=== PATIENT | female | born 2000 | race African-American/Black ===

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

== ENCOUNTER 2019-02-06 12:08 | Emergency (ER) | payer MEDICAID ==
[~2019-02-06] VITALS: Ht 162.6 cm; Wt 61.2 kg
[2019-02-06 12:25] VITALS: BP 125/72
--- NOTE | 2019-02-06 13:07 | PHYS DOC ---
Past Medical History Past Medical History: No Pertinent History, Other Additional Past Medical Histor: ADHD (TAHMINALYUBOV Polanco COMMERCIAL COLLECTOR) Past Surgical History: No Surgical History (TAHMINALYUBOV Polanco COMMERCIAL COLLECTOR) Alcohol Use: None Drug Use: None (CAMMY,LYUBOV COMMERCIAL COLLECTOR) Adult General Chief Complaint Chief Complaint: COUGH HPI HPI Patient is a 18 year old female who presents to the ED today complaining of a cough for 6 days. Patient states the cough is productive. Denies any fever. (LYUBOV CHAWLA COMMERCIAL COLLECTOR) Review of Systems Review of Systems Constitutional: Denies fever or chills [] Eyes: Denies change in visual acuity, redness, or eye pain [] HENT: Denies nasal congestion or sore throat [] Respiratory: Reports cough, denies shortness of breath [] Cardiovascular: No additional information not addressed in HPI [] GI: Denies abdominal pain, nausea, vomiting, bloody stools or diarrhea [] : Denies dysuria or hematuria [] Musculoskeletal: Denies back pain or joint pain [] Integument: Denies rash or skin lesions [] Neurologic: Denies headache, focal weakness or sensory changes [] All other systems were reviewed and found to be within normal limits, except as documented in this note. (LYUBOV CHAWLA COMMERCIAL COLLECTOR) Allergies Allergies Allergies Coded Allergies Type Severity Reaction Last Updated Verified No Known Drug Allergies 05/07/17 No (ELLEN SANTORO DO) Physical Exam Physical Exam Constitutional: Well developed, well nourished, no acute distress, non-toxic appearance. [] HENT: Normocephalic, atraumatic, bilateral external ears normal, oropharynx moist, no oral exudates, nose normal. [] Eyes: PERRLA, EOMI, conjunctiva normal, no discharge. [] Neck: Normal range of motion, no tenderness, supple, no stridor. [] Cardiovascular:Heart rate regular rhythm, no murmur [] Lungs & Thorax: Bilateral breath sounds clear to auscultation [] Abdomen: Bowel sounds normal, soft, no tenderness, no masses, no pulsatile masses. [] Skin: Warm, dry, no erythema, no rash. [] Back: No tenderness, no CVA tenderness. [] Extremities: No tenderness, no cyanosis, no clubbing, ROM intact, no edema. [] Neurologic: Alert and oriented X 3, normal motor function, normal sensory function, no focal deficits noted. [] Psychologic: Affect normal, judgement normal, mood normal. [] (LYUBOV CHAWLA APRN) Current Patient Data Vital Signs Vital Signs Date Time Temp Pulse Resp B/P (MAP) Pulse Ox O2 Delivery O2 Flow Rate FiO2 02/06/19 12:25 98.1 90 18 125/72 (89) 99 Room Air 98.1 (ELLEN SANTORO DO) Lab Values Laboratory Tests Test 02/06/19 12:48 02/06/19 12:58 Influenza Type A Antigen Negative (NEGATIVE) Influenza Type B Antigen Negative (NEGATIVE) POC Urine HCG, Qualitative Hcg negative (Negative) (ELLEN SANTORO DO) Lab Values Laboratory Tests Test 02/06/19 12:48 02/06/19 12:58 Influenza Type A Antigen Negative (NEGATIVE) Influenza Type B Antigen Negative (NEGATIVE) POC Urine HCG, Qualitative Hcg negative (Negative) (LYUBOV CHAWLA APRN) EKG EKG [] (LYUBOV CHAWLA APRN) Radiology/Procedures Radiology/Procedures []PROCEDURE: CHEST PA & LATERAL Chest, PA and Lateral: Technique: PA and lateral views of the chest were obtained. History: Cough, congestion, shortness of breath. Comparison: None. Findings: The heart and pulmonary vasculature appear within normal limits. The lungs are clear. The pleural margins are clear. Impression: No acute chest process is seen. Electronically signed by: Michael Mckeon MD (02/06/2019 1:18 PM) [facility] DICTATED and SIGNED BY: MICHAEL MCKEON MD DATE: 02/06/19 1318 (LYUBOV CHAWLA APRN) Course & Med Decision Making Course & Med Decision Making Pertinent Labs and Imaging studies reviewed. (See chart for details) This is a 18-year-old female patient presenting to the ED today with a cough that began 6 days ago. Chest xray interpreted by radiology is negative Negative influenza A or B D/c to home. Supportive care measures recommended. Follow-up with PCP in 1-2 weeks. (LYUBOV CHAWLA APRN) Dragon Disclaimer Dragon Disclaimer This electronic medical record was generated, in whole or in part, using a voice recognition dictation system. (LYUBOV CHAWLA APRN) Departure Departure Impression: Primary Impression: Cough Disposition: HOME, SELF-CARE Condition: STABLE Referrals: NO PCP (PCP) follow up with your doctor in 1-2 weeks Patient Instructions: Cough, Adult, [id number] Additional Instructions: You were evaluated in the emergency room for symptoms consistent with a viral illness. You can take [id number]-[id number] medications as needed for your symptoms. Your chest x-ray is negative, your influenza test is negative. Please follow-up with your own doctor in 1-2 weeks. Attending Signature Attending Signature I have reviewed the PA/CRANK HAND's note and plan of care. I was available for consultation as needed during the patient's visit in the emergency department. I agree with the clinical impression, plan, and disposition. (ELLEN SANTORO DO) LYUBOV CHAWLA APRN Feb 06, 2019 13:07 ELLEN SANTORO DO Feb 06, 2019 17:46
--- NOTE | 2019-02-06 13:21 | RAD ---
Chest, PA and Lateral: Technique: PA and lateral views of the chest were obtained. History: Cough, congestion, shortness of breath. Comparison: None. Findings: The heart and pulmonary vasculature appear within normal limits. The lungs are clear. The pleural margins are clear. Impression: No acute chest process is seen. Electronically signed by: Michael Mckeon MD (02/06/2019 1:18 PM) [facility]
[2019-02-06 14:02] LABS: INFLUENZA A PATIENT NEGATIVE (NEGATIVE); INFLUENZA B PATIENT NEGATIVE (NEGATIVE)
== END 2019-02-06 14:15 | disposition home or self-care (01) ==
LOC: ER 12:08
DX: R05 Cough (principal)
CPT/HCPCS: 71046; 81025; 87804; 99285-25

== ENCOUNTER 2019-02-18 21:55 | Emergency (ER) | payer SELFPAY ==
[2019-02-18 22:08] VITALS: BP 136/87
--- NOTE | 2019-02-18 23:04 | PHYS DOC ---
Past Medical History Past Medical History: No Pertinent History, Other Additional Past Medical Histor: ADHD (LYUBOV CHAWLA APRN) Past Surgical History: No Surgical History (LYUBOV CHAWLA APRN) Alcohol Use: None Drug Use: None (LYUBOV CHAWLA APRN) Attending Signature I have participated in the care of this patient and I have reviewed and agree with all pertinent clinical information above including history, exam, and recommendations. (ALBERTA LITTLE MD) Adult General Chief Complaint Chief Complaint: FLU SYMPTOM HPI HPI Patient is a 18 year old female presenting to the ED today with cough nasal congestion and body aches and chills for 4 days. (LYUBOV CHAWLA APRN) Review of Systems Review of Systems Constitutional: Reports body aches and chills, denies fever Eyes: Denies change in visual acuity, redness, or eye pain [] HENT: Reports nasal congestion, denies sore throat [] Respiratory: Reports cough, denies shortness of breath [] Cardiovascular: No additional information not addressed in HPI [] GI: Denies abdominal pain, nausea, vomiting, bloody stools or diarrhea [] : Denies dysuria or hematuria [] Musculoskeletal: Denies back pain or joint pain [] Integument: Denies rash or skin lesions [] Neurologic: Denies headache, focal weakness or sensory changes [] All other systems were reviewed and found to be within normal limits, except as documented in this note. (LYUBOV CHAWLA APRN) Allergies Allergies Allergies Coded Allergies Type Severity Reaction Last Updated Verified No Known Drug Allergies 05/07/17 No (ALBERTA LITTLE MD) Physical Exam Physical Exam Constitutional: Well developed, well nourished, no acute distress, non-toxic appearance. [] HENT: Normocephalic, atraumatic, bilateral external ears normal, oropharynx moist, no oral exudates, sounds congested nasally Eyes: PERRLA, EOMI, conjunctiva normal, no discharge. [] Neck: Normal range of motion, no tenderness, supple, no stridor. [] Cardiovascular:Heart rate regular rhythm, no murmur [] Lungs & Thorax: Bilateral breath sounds clear to auscultation [] Abdomen: Bowel sounds normal, soft, no tenderness, no masses, no pulsatile masses. [] Skin: Warm, dry, no erythema, no rash. [] Back: No tenderness, no CVA tenderness. [] Extremities: No tenderness, no cyanosis, no clubbing, ROM intact, no edema. [] Neurologic: Alert and oriented X 3, normal motor function, normal sensory function, no focal deficits noted. [] Psychologic: Affect normal, judgement normal, mood normal. [] (LYUBOV CHAWLA APRN) Current Patient Data Vital Signs Vital Signs Date Time Temp Pulse Resp B/P (MAP) Pulse Ox O2 Delivery O2 Flow Rate FiO2 02/18/19 22:08 99.9 102 12 136/87 (103) 96 Room Air 99.9 (ALBERTA LITTLE MD) EKG EKG [] (LYUBOV CHAWLA APRN) Radiology/Procedures Radiology/Procedures [] (LYUBOV CHAWLA APRN) Course & Med Decision Making Course & Med Decision Making Pertinent Labs and Imaging studies reviewed. (See chart for details) This is a 18-year-old female patient presenting to the ED today with with viral type symptoms for 4 days. MSE was done per hospital protocol Patient left (LYUBOV CHAWLA APRN) Dragon Disclaimer Dragon Disclaimer This electronic medical record was generated, in whole or in part, using a voice recognition dictation system. (LYUBOV CHAWLA APRN) Departure Departure Impression: Primary Impression: URI (upper respiratory infection) Additional Impression: Cough Disposition: 07 AGAINST MEDICAL ADVICE Condition: STABLE Referrals: NO PCP (PCP) Problem Qualifiers Primary Impression: URI (upper respiratory infection) URI type: unspecified URI Qualified Codes: J06.9 - Acute upper respiratory infection, unspecified LYUBOV CHAWLA APRN Feb 18, 2019 23:04 ALBERTA LITTLE MD Feb 19, 2019 02:22
== END 2019-02-18 23:01 | disposition left against medical advice (07) ==
LOC: ER 21:55
DX: J06.9 Acute upper respiratory infection, unspecified (principal); R09.81 Nasal congestion; R05 Cough; R68.83 Chills (without fever); F90.9 Attention-deficit hyperactivity disorder, unspecified type
CPT/HCPCS: 99281

== ENCOUNTER 2020-04-21 23:21 | Emergency (ER) | payer MEDICAID ==
[~2020-04-21] VITALS: Ht 162.6 cm; Wt 73.6 kg
--- NOTE | 2020-04-22 00:13 | ED.ADGEN ---
Past Medical History Past Medical History: Other Additional Past Medical Histor: ADHD Past Surgical History: No Surgical History Smoking Status: Never Smoker Alcohol Use: None Drug Use: None General Adult EDM: Chief Complaint: VAGINAL BLEEDING HPI: HPI: Patient is a 19 year old G1 at 13 weeks 14 days with abdominal pain. Patient states she was wrestling around and accidentally hit the right side of her belly on some stairs. She a couple hours later went to the restroom and noticed some pink tinge on the toilet paper. No gross blood or clots. Patient states she has started having a cramp in the left side of her abdomen. Denies any other symptoms or illness. No complications with this , has had an ultrasound with her [employer] that showed a normal intrauterine . Does not know her blood type. Review of Systems: Review of Systems: All other systems within normal limits except for as noted in the HPI Current Medications: Current Medications Medications (Trade) Dose Ordered Sig/Payton Start Time Stop Time Status Last Admin Dose Admin Diphenhydramine HCl (Benadryl) 25 mg 1X ONCE 04/22/20 00:30 04/22/20 00:31 DC 04/22/20 00:54 25 MG Sodium Chloride 1,000 ml @ 1,000 mls/hr 1X ONCE 04/22/20 00:30 04/22/20 01:29 DC 04/22/20 00:42 1,000 MLS/HR Allergies: Allergies: Allergies Coded Allergies Type Severity Reaction Last Updated Verified No Known Drug Allergies 05/07/17 No Physical Exam: PE: Constitutional: Well developed, well nourished, no acute distress, non-toxic appearance. [] HENT: Normocephalic, atraumatic, bilateral external ears normal, nose normal. [] Eyes: PERRLA, conjunctiva normal, no discharge. [] Neck: No rigidity, supple, no stridor. [] Cardiovascular: Regular rate and rhythm, brisk cap refill [] Lungs & Thorax: Non labored symmetric respirations, no tachypnea or respiratory distress [] Abdomen: Soft, nondistended, no guarding, uterus below bellybutton. Skin: Warm, dry, no erythema, no rash. [] Back: Unremarkable Extremities: No deformities, range of motion grossly intact, no lower extremity edema [] Neurologic: Alert and oriented X 3, no focal deficits noted. [] Psychologic: Affect normal, judgement normal, mood normal. [] Current Patient Data: Labs: Laboratory Tests Test 04/21/20 23:32 04/22/20 00:01 POC Urine HCG, Qualitative Hcg positive (Negative) Urine Collection Type Unknown Urine Color Jen Urine Clarity Cloudy Urine pH 6.0 (<5.0-8.0) Urine Specific [place] >=1.030 (1.000-1.030) Urine Protein 30 mg/dL (NEG-TRACE) Urine Glucose (UA) Negative mg/dL (NEG) Urine Ketones (Stick) Trace mg/dL (NEG) Urine Blood Negative (NEG) Urine Nitrite Negative (NEG) Urine Bilirubin Small (NEG) Urine Urobilinogen Dipstick 1.0 mg/dL (0.2 mg/dL) Urine Leukocyte Esterase Moderate (NEG) Urine RBC Occ /HPF (0-2) Urine WBC 1-4 /HPF (0-4) Urine Squamous Epithelial Cells Mod /LPF Urine Amorphous Sediment Present /HPF Urine Bacteria Few /HPF (0-FEW) Urine Mucus Mod /LPF Microbiology 04/22/20 Wet Prep - Final, Complete Vital Signs: Vital Signs Date Time Temp Pulse Resp B/P (MAP) Pulse Ox O2 Delivery O2 Flow Rate FiO2 04/22/20 00:44 98.3 85 17 114/69 (84) 100 Room Air 98.3 EKG: EKG: [] Heart Score: C/O Chest Pain: No Risk Factors: Risk Factors: DM, Current or recent (<one month) smoker, HTN, HLP, family history of CAD, obesity. Risk Scores: Score 0 - 3: 2.5% MACE over next 6 weeks - Discharge Home Score 4 - 6: 20.3% MACE over next 6 weeks - Admit for Clinical Observation Score 7 - 10: 72.7% MACE over next 6 weeks - Early Invasive Strategies Radiology/Procedures: Radiology/Procedures: US PRE HYSTEROSALPINGOGRAM Clinical Indication: abd injury, pain. LMP 01/17/2020. Comparison: None. Technique: Multiple grayscale images, color Doppler, and M-mode images of the uterus are obtained. Findings: There is a single intrauterine gestation. The placenta is fundal in location without evidence of placenta previa. The amount of amniotic fluid appears appropriate. Biometrical data: BPD = 2.2 cm for 13 weeks 4 days. HC = 8.77 cm for 13 weeks 6 days. AC = 7.65 cm for 14 weeks 1 days. FL = 1.20 cm for 13 weeks 4 days. CI ratio = 83.8. HC/AC ratio = 1.15. FL/HC ratio = 13.7. FL/AC ratio = 15.7. Overall, the estimated sonographic gestational age is 13 weeks 6 days for an estimated date of delivery of 10/22/2020. The estimated date of delivery provided by the last menstrual period is 10/23/2020. The estimated heart rate is 160 beats per minute. Left ovary measures 2.9 x 1.7 x 1.4 cm. Right ovary not visualized. Impression: Single live intrauterine gestation with estimated sonographic gestational age of 13 weeks 6 days.[] Course & Med Decision Making: Course & Med Decision Making Pertinent Labs and Imaging studies reviewed. (See chart for details) RUN DATE: 04/22/20 [facility] *LIVE* PAGE 1 RUN TIME: 0239 Specimen Inquiry PATIENT: TOMMY WEIR ACCT: [id number] LOC: [facility] U: [id number] AGE/SX: 19/F ROOM: RE04/21/[address]: BELA MATIAS MD : 2000 BED: DIS: STATUS: TOBIAS POLLACK TLOC: SPEC #: [id number] PEGGY: 04/22/20-0120 STATUS: KT REQ #: [id number] RECD: 04/22/20 [facility] DR: BELA MATIAS MD SOURCE: VAGINAL ENTR: 04/22/20 [facility] DR: NO [facility] COMMENTS: Has specimen been collected/obtained? Y Procedure Result WET PREP Final YEAST NONE SEEN TRICHOMONAS NONE SEEN CLUE CELLS CLUE CELLS PRESENT ALTERED ROSE ALTERED ROSE PRESENT SUGGESTIVE OF BACTERIAL VAGINOSIS WBCS MODERATE RBCS NO RBCS SEEN SQUAMOUS EPS MODERATE [] Tej Disclaimer: Tej Disclaimer: This electronic medical record was generated, in whole or in part, using a voice recognition dictation system. Departure Departure Impression: Primary Impression: Bacterial vaginosis in Disposition: DC HOME SELF CARE/HOMELESS Condition: STABLE Referrals: NO PCP (PCP) Patient Instructions: Bacterial Vaginosis Scripts Metronidazole (METRONIDAZOLE) 250 Mg Tablet 1 TAB PO TID for antibiotic for 7 Days, #21 TAB Prov: BELA MATIAS MD 04/22/20 BELA MATIAS MD Apr 22, 2020 00:13
[2020-04-22 00:33] LABS: BILIRUBIN,URINE SMALL (NEG); CLARITY,URINE CLOUDY; COLOR,URINE AMBER; NITRITE,URINE NEGATIVE (NEG); PROTEIN,URINE 30 mg/dL (NEG-TRACE)
[2020-04-22 00:42] LABS: AMORPHOUS SEDIMENT,UR PRESENT /HPF; BACTERIA,URINE FEW /HPF (0-FEW); RBC,URINE OCC /HPF (0-2)
[2020-04-22] MEDS: IV NORMAL SALINE 1000ML BAG 1,000 ML IV ONE (00:42)
[2020-04-22] MEDS: diphenhydrAMINE 50 MG/ML VIAL IVP ONE (00:54)
--- NOTE | 2020-04-22 02:30 | RAD ---
US PRE HYSTEROSALPINGOGRAM Clinical Indication: abd injury, pain. LMP 01/17/2020. Comparison: None. Technique: Multiple grayscale images, color Doppler, and M-mode images of the uterus are obtained. Findings: There is a single intrauterine gestation. The placenta is fundal in location without evidence of plac enta previa. The amount of amniotic fluid appears appropriate. Biometrical data: BPD = 2.2 cm for 13 weeks 4 days. HC = 8.77 cm for 13 weeks 6 days. AC = 7.65 cm for 14 weeks 1 days. FL = 1.20 cm for 13 weeks 4 days. CI ratio = 83.8. HC/AC ratio = 1.15. FL/HC ratio = 13.7. FL/AC ratio = 15.7. Overall, the estimated sonographic gestational age is 13 weeks 6 days for an estimated date of delive ry of 10/22/2020. The estimated date of delivery provided by the last menstrual period is 10/23/2020. The estimated heart rate is 160 beats per minute. Left ovary measures 2.9 x 1.7 x 1.4 cm. Right ovary not visualized. Impression: Single live intrauterine gestation with estimated sonographic gestational age of 13 weeks 6 days. Electronically signed by: Rebel Allen MD (04/22/2020 2:28 AM) [id number]
[2020-04-22] MEDS ORDERED: METR-111 PO (02:52)
[2020-04-22 03:00] VITALS: BP 116/70
== END 2020-04-22 03:05 | disposition home or self-care (01) ==
LOC: ER 23:21
DX: O23.591 Infection of other part of genital tract in pregnancy, first trimester (principal); B96.89 Other specified bacterial agents as the cause of diseases classified elsewhere; Z3A.13 13 weeks gestation of pregnancy
CPT/HCPCS: 36415; 76801; 81001; 81025; 86900; 86901; 87086; 87491; 87591; 96361; 96374; 99285; J1200; J7030; Q0111